=== PATIENT | male | born 1960 | race Caucasian/White ===

== ENCOUNTER 2016-06-05 18:04 | Emergency (ER) | payer OTHER ==
[2016-06-05 18:32] VITALS: PULSE 89; RESP 18; TEMP 97.3
[2016-06-05] MEDS ORDERED: DIPH,PERTUS(ACELL)TETVAC-LF 0.5 ML VIAL IM ONE (18:34)
--- NOTE | 2016-06-05 18:37 | ED ---
Wound/Laceration HPI - General Chief Complaint: Wound/Laceration Stated Complaint: [facility]-Finger Injury Time Seen by Provider: 06/05/16 18:29 Source: patient, RN notes reviewed Mode of arrival: ambulatory Limitations: no limitations - History of Present Illness Initial Comments: 55-year-old male presents to the emergency Department chief complaint of left hand injury. Patient states he was cut by a piece of steel today. Patient does not recall his last tetanus. Patient states he has no other symptoms at this. Patient denies any fever chills cough cold runny nose. Patient denies any nausea vomiting. Stated simple cut. He was sent here from work. Patient has no pain at this time. - Related Data Home Medications Medication Instructions Recorded Confirmed Unable To Assess [Unable to Assess] 06/05/16 06/05/16 Allergies Allergy/AdvReac Type Severity Reaction Status Date / Time No Known Allergies Allergy Verified 08/03/13 12:16 Review of Systems ROS Statement: Those systems with pertinent positive or pertinent negative responses have been documented in the HPI. ROS Other: All systems not noted in ROS Statement are negative. Past Medical History Past Medical History: Hypertension, Thyroid Disorder History of Any Multi-Drug Resistant Organisms: None Reported Additional Past Surgical History / Comment(s): rectal fistula repair Past Psychological History: No Psychological Hx Reported Smoking Status: Current every day smoker Past Alcohol Use History: Daily Past Drug Use History: None Reported General Exam - General Exam Comments Initial Comments: General: The patient is awake and alert, in no distress, and does not appear acutely ill. Neck: The neck is supple, there is no tenderness. Cardiovascular: There is a regular rate and rhythm. No murmur, rub or gallop is appreciated. Respiratory: Lungs are clear to auscultation, respirations are non-labored, breath sounds are equal. No wheezes, stridor, rales, or rhonchi. Musculoskeletal: Sensation intact with 2+ pulses. Left upper extremity. Full range of motion of left wrist left hand in all digits. He does appear to have a 2 cm laceration over the left palm next to the second and third digit. Neurological: CN II-XII intact, There are no obvious motor or sensory deficits. Coordination appears grossly intact. Speech is normal. Skin: Skin is warm and dry and no rashes or lesions are noted. Psychiatric: Normal mood and affect. Limitations: no limitations Course Vital Signs 06/05/16 18:30 Temperature 97.3 F L Pulse Rate 89 Respiratory 18 Rate Blood Pressure 156/100 O2 Sat by Pulse 95 Oximetry Procedures - Procedures Initial comment: The skin was anesthetized with 1% lidocaine. The laceration was then cleansed with Betadine and irrigated with normal saline. The wound was inspected, and there was no evidence of injury to deep structures. No foreign body was noted in the wound. A total of 3 skin sutures were placed utilizing 5-0 nylon with 2 cm laceration to the left hand Medical Decision Making - Medical Decision Making 55-year-old male presents to emergency room chief complaint of left hand laceration. It is a patient of suture care. Update tetanus. We discussed return parameters and follow-up. Discussed outpatient questions. They state that they understand the plan. At this time we will be discharged home. - Radiology Data Radiology results: report reviewed, image reviewed Disposition Clinical Impression: Laceration of left hand Disposition: HOME SELF-CARE Condition: Stable Instructions: Laceration (ED) Additional Instructions: Please use medication as discussed. Please follow up with family doctor if symptoms have not improved over the next two days. Please return to the emergency room if your symptoms increase or worsen or for any other concerns. Please return to the emergency room in 8-10 days to have sutures removed. Please leave wound covered for the first 24-48 hours and then leave open to air after that time. Please use clean soap and water to clean the suture area to prevent scabbing over the top of your sutures. Please watch for any signs of infection which may include but not limited to increased pain, swelling, redness , fever or chills. Please return to the emergency room if any signs of infection do occur. Please return to the emergency room for any other concerns or complications. Referrals: Doroteo Reynoso MD [STAFF PHYSICIAN] - 1-2 days Time of Disposition: 19:10
--- NOTE | 2016-06-05 18:56 | XR ---
EXAMINATION TYPE: XR hand complete LT DATE OF EXAM: 06/05/2016 6:52 PM CLINICAL HISTORY: pain TECHNIQUE: Frontal, lateral and oblique images of the left hand are obtained. COMPARISON: None. FINDINGS: There is no acute fracture/dislocation evident. Severe degenerative change at the first ca rpal metacarpal joint. The overlying soft tissue appears unremarkable. No radiopaque foreign body see n. IMPRESSION: There is no acute fracture or dislocation. ICD 10 NO FRACTURE, INITIAL EVALUATION
[2016-06-05 19:33] VITALS: BP 154/89
== END 2016-06-05 19:31 | disposition home or self-care (01) ==
LOC: EC 18:04
DX: S61.412A Laceration without foreign body of left hand, initial encounter (principal); F17.200 Nicotine dependence, unspecified, uncomplicated; Z23 Encounter for immunization; W26.0XXA Contact with knife, initial encounter
CPT/HCPCS: 12001; 90471; 90715; 99283